=== PATIENT | male | born 1965 | race Caucasian/White ===

== ENCOUNTER 2023-05-03 03:57 | Inpatient (IN) | payer OTHER, SELFPAY ==
[2023-05-02 22:24] VITALS: BP 88/60
[2023-05-02 22:32] VITALS: BMI 30.4
[2023-05-02 22:41] VITALS: BP 118/83
[2023-05-02 22:59] LABS: % Basophils 0.2 % (0-2); % Immature Granulocytes 0.7 % (0-0.5); % Lymphocytes 4.4 % (20.5-51.1); % Monocytes 4.9 % (1.7-9.3); % Neutrophils 89.8 % (42.2-75.2); Absolute Immature Granulocytes 0.1 10^3/uL (0-0.05); Absolute Lymphocytes 0.6 10^3/uL (1.2-3.4); Absolute Monocytes 0.7 10^3/uL (0.1-0.6); Absolute Neutrophils 12.3 10^3/uL (1.4-6.5); Hematocrit 51.7 % (39.0-52.0); Hemoglobin 18.5 g/dL (13.0-18.0); Mean Corp Hgb Conc. 35.8 g/dL (33.0-37.0); Mean Corpuscular Hgb 31.6 pg (27.0-31.0); Mean Corpuscular Volume 88.4 fL (80.0-94.0); Mean Platelet Volume 10.2 fL (7.4-10.4); Nucleated Red Blood Cells % 0 % (-); Platelet Count 167 10^3/uL (130-400); Red Blood Cell Count 5.85 10^6/uL (4.70-6.10); Red Cell Dist. Width 13.6 % (11.5-14.5); White Blood Cell Count 13.8 10^3/uL (4.8-10.8)
[2023-05-02 23:19] VITALS: BP 75/59
[2023-05-02 23:21] VITALS: BP 75/60
[2023-05-02 23:28] LABS: NT-proBNP 7360 pg/ml; Troponin I 0.058 ng/ml
[2023-05-02 23:45] LABS: TSH Reflex To Free T4 2.72 uIU/ml (0.47-4.68)
[2023-05-02 23:50] LABS: ALT (SGPT) 23 U/L (0-50); AST (SGOT) 43 U/L (17-59); Albumin 3.3 g/dl (3.5-5.0); Alkaline Phosphatase 74 U/L (38-126); Blood Urea Nitrogen 49 mg/dl (9-20); Calcium 7.6 mg/dl (8.4-10.2); Carbon Dioxide 23 mmol/L (22-30); Chloride 93 mmol/L (98-107); Estimated Creatinine Clearance 42 ml/min; Glucose 171 mg/dl (70-99); Potassium 4.3 mmol/L (3.5-5.1); Sodium 124 mmol/L (135-145); Total Bilirubin 0.9 mg/dl (0.2-1.3); Total Protein 5.8 g/dl (6.3-8.2); eGFR 37.97
[2023-05-03] VITALS (45 sets, daily range): BP systolic 68–117; BP diastolic 47–77; BMI 30.5
[2023-05-03 00:39] LABS: Osmolality Serum 282 mOsm/kg (275-300)
--- NOTE | 2023-05-03 01:49 | ED.GENMED ---
History of Present Illness
General
Chief Complaint: Heart Rate Problem
Source: patient and records
Exam Limitations: none
Time Seen by Provider: 05/02/23 22:41
Nursing documentation reviewed up to this point in time: agreed with
Travel History
Have you had any contact with someone who has COVID-19?: No
Do you have any symptoms of coronavirus? Fever > 100 degrees, chills, cough, shortness of breath, sore throat, loss of taste or smell, muscle aches, or headache?: Yes
Symptoms:: sob
History of Present Illness
History of Present Illness:
Patient is a 58-year-old male who presents to the emergency department complaining of shortness of breath as well as tachycardia and feeling lightheaded and weak. Patient does not feel like he is going to pass out. Patient denies fever or chills.
Patient does admit to some nasal congestion and cough secondary to his son's recent upper respiratory illness. Patient's son is autistic and he cares for him at home. Patient saw his biology specialist 2 days ago and was told everything was fine. He
had an EKG at that time. Patient believes he was in atrial fibrillation in the past. Patient denies any GI or symptoms. Patient does admit to some swelling of his lower extremities at this time.
Past History
Past History
ED Past Medical History: Arrthythmia (Atrial fibrillation), CAD and SD
Social History
Tobacco: Smoker
Personal:
Review of Systems
Review of Systems
All Other Systems: ROS reviewed and negative except as documented in HPI and ROS
Constitutional: Reports fatigue; Denies fever or chills
EENT: Reports runny nose
Respiratory: Reports cough; Denies trouble breathing
Cardiac: Reports palpitations; Denies chest pain or diaphoresis
ABD/GI: Reports no symptoms
: Reports no symptoms
Musculoskeletal: Reports edema
Skin: Reports no symptoms
Neurological: Reports no symptoms
Hematologic/Lymphatic: Reports no symptoms
Phy Exam
Physical Exam
Physical Exam:
Physical Exam
General: mild distress, alert and appropriate, well nourished, well hydrated
HENT: Normocephalic, supple with no lymphadenopathy, no thyromegaly
Eyes: Clear sclera, conjuctiva without injection
Heart: Regular rhythm and tachycardic rate. No S3, S4. No murmur. No NVD
Lungs: No respiratory distress, no stridor, lung sounds are coarse but clear and equal bilaterally, chest wall symmetrical and nontender
Abdomen: Soft, nontender, no organomegaly, no CVA tenderness, BS good
Neuro: Alert and oriented x 3, CN II - XII intact, no motor focality, no cerebellar dysfunction
Skin: no rash. Pale
Psychiatric: well kept. interactive and cooperative
Extremities: No cyanosis, tenderness. +1 pitting pretibial edema bilaterally
Scores
[id number] Score for Afib Stroke Risk
Age in Years (65=0, 65-74=1, >/=75=2): <65
Sex (Female=+1): Male
Congestive Heart Failure History (Yes=+1): No
Hypertension History (Yes=+1): No
Stroke/TIA/Thromboembolism History (Yes=+2): No
Vascular Disease History (Yes=+1): Yes
Diabetes Mellitus (Yes=+1): No
Score: 1
Anticoagulation Recommendations: Consider anticoagulation (as validated in nonvalvular fib)
Course
Orders/Labs/Results
Orders:
Orders
05/02/23 22:33
Electrocardiogram (*1) Urgent
Reason for Study: Other
Other Reason for Exam: Respiratory Distress
Cardiac Monitoring- Treatment ONCE
EKG- Treatment ONCE
TSH Reflex To Free T4 Urgent
Comment: ADD ON
CR Chest - 2 Views Urgent
Comment:
Reason For Exam: respiratory distress
O2 Therapy [RESP] Urgent
Titrate/Wean O2 to maintain O2 sat greater than (%): 93
Special Instructions: TO MAINTAIN CONTINUOUS O2 SATS >/= 93%
Pulse Ox/cont/shift [RESP] Urgent
Quantity: 1
Special Instructions: continuous pulse ox
05/02/23 22:34
Add On- LAB Urgent
Comments:: TSh Reflex T4
Tests Added?: Y
05/02/23 22:41
Diltiazem HCl [Cardizem] 20 mg IV NOW STA
05/02/23 22:42
Complete Blood Count/With Diff Urgent
NT-proBNP Urgent
Troponin I Urgent
05/02/23 23:18
Comprehensive Metabolic Panel Urgent
Serum Osmolality Urgent
Comment: ADD ON
05/02/23 23:56
Add On- LAB Urgent
Tests Added?: serum osmality
Urine Sodium Urgent
05/02/23 23:57
Osmolality, Random Urine Urgent
05/03/23 02:02
Propofol [Diprivan] 20 ml .ROUTE .STK-MED
05/03/23 02:46
EKG [Electrocardiogram (*1)] Urgent
Reason for Study: Atrial Fibrillation
Other Reason for Exam: post cardioversion
05/03/23 02:47
EKG- Treatment ONCE
05/03/23 02:54
Furosemide [Lasix] 60 mg IV NOW STA
05/03/23 02:58
Apixaban [Eliquis] 5 mg PO NOW STA
05/03/23 03:00
3% Sodium Chloride 250 ml [Sodium Chloride 3%] 250 ml IV ONCE
NORepinephrine INF (STD CONC) CONTINUOUS NORepinephrine 4 MG/250 ML [Levophed] 4 mg in 250 ml IV PER PROTOCOL
Initial dose in mcg/min, then titrate:: 4
Titrate to keep:: SBP > 90 mmHg
Titrate by mcg/min:: 1-2 mcg/min
Frequency of titrations (minutes):: 5
Maximum dose in ICU in mcg/min:: 30
Maximum dose in IMU in mcg/min:: 8
Maximum dose in IVU in mcg/min:: 4
Begin to taper infusion when:: Remained at goal for 4hrs
Taper by mcg/min:: 1-2 mcg/min
Frequency of taper (minutes) if patient maintains goal:: 30
Taper to off?: Yes
If infusion off & no longer maintaining goal:: Contact Provider
Abnormal Lab Results
05/02/23 05/02/23
22:42 23:18
WBC 13.8 H 10^3/uL
(4.8-10.8)
Hgb 18.5 H g/dL
(13.0-18.0)
MCH 31.6 H pg
(27.0-31.0)
Abs Immat Gran (auto) 0.1 H 10^3/uL
(0-0.05)
Absolute Neuts (auto) 12.3 H 10^3/uL
(1.4-6.5)
Absolute Lymphs (auto) 0.6 L 10^3/uL
(1.2-3.4)
Absolute Monos (auto) 0.7 H 10^3/uL
(0.1-0.6)
Immature Gran % 0.7 H %
(0-0.5)
Neutrophils % 89.8 H %
(42.2-75.2)
Lymphocytes % 4.4 L %
(20.5-51.1)
Sodium 124 L mmol/L
(135-145)
Chloride 93 L mmol/L
(98-107)
BUN 49 H mg/dl
(9-20)
Creatinine 2.0 H mg/dL
(0.7-1.3)
Glucose 171 H mg/dl
(70-99)
Calcium 7.6 L mg/dl
(8.4-10.2)
Troponin I 0.058 H* ng/ml
Total Protein 5.8 L g/dl
(6.3-8.2)
Albumin 3.3 L g/dl
(3.5-5.0)
05/02/23 22:42
05/02/23 23:18
Vital Signs
Initial and Last Documented VS:
Initial Vital Signs
Temp Pulse Resp BP Pulse Ox
97.6 F 74 20 88/60 88
05/02/23 22:24 05/02/23 22:24 05/02/23 22:24 05/02/23 22:24 05/02/23 22:24
Last Documented Vital Signs
Temp Pulse Resp BP Pulse Ox
98.0 F 87 31 77/59 92
05/03/23 02:36 05/03/23 02:50 05/03/23 02:50 05/03/23 02:50 05/03/23 02:50
Procedures
Cardioversion
Indication:: Afib
Performed by:: [email or web address]
Synchronized?: Yes
Energy Used: Other (100)
Number of attempts: 1
Successful?: Yes
Complications: Transient low pulse ox to 85% came back with bagging
ASA Risk Score: Class III
Any reaction or bad outcome to prior sedation/anesthesia?: No history of a reaction
Sedation level to be attained: deep
Chart and allergies reviewed: Yes
Patient reassessed prior to sedation: Yes
Time out completed at (validating right patient & procedure): 02:39
History of difficult intubation: No
Airway free of obstruction: Yes
Patient has a gag reflex: Yes
Patient is able to open mouth: Yes
Patient has no dentures: Yes
Patient has no loose teeth: Yes
Medication administered by Provider during Moderate Sedation: IV Propofol (mg)
Total dose administered: 70
Time drug administered: 00:29
Start Time: 02:39
Stop Time: 02:50
*Radiology
Radiology exam reviewed: radiology read reviewed (unchanged)
*Pulse Oximetry
Patient hypoxic: yes
*EKG
Interpreted by ED Provider?: Yes
EKG Intrepretation Date: 05/03/23
EKG Intrepretation Time: 03:01
Interpretation: abnormal
Comparison EKG: changes noted
Heart Rate: 147
Rate: tachycardiac
Rhythm: a-fib
[place]: normal axis
Interval: normal QT interval
QRS Pattern: poor R-wave progression
Ischemia: non-specific ST changes
*Reimbursement Director Interpretation
Rate: tachycardiac
Interpretation: abnormal
Heart Rate: 150
Rhythm: a-fib
*Critical Care Note
Total Time (30-74mins, 75-104mins- exclusive of procedures): 45 minutes
Update Note
Update Note:
Patient's blood pressure did not come up with cardioversion. Patient was 48 hours from being in sinus rhythm according to the patient. Patient was cardioverted hoping that his pressure would come up. Patient's repeat EKG shows normal sinus rhythm
with a rate of 86. Patient has a left axis deviation with poor R wave progression and an old inferior wall SD. This is similar to previous EKGs. The patient's blood pressure will be augmented with Levophed and try to increase diuresis with Lasix
given the patient's elevated BNP. Believe the patient's troponin is from the tachycardia and not from ischemic heart disease although the patient in the past has had a 60% occlusion of the circumflex and 30% of the LAD after having a total
occlusion of the RCA. Patient does continue to smoke. Patient's sodium is also low which it was on his previous visit. Patient will be started on hypertonic saline. In addition the patient's renal function has dramatically decreased since his
previous visit 2 weeks ago.
ED Attending Note
-
Portions of this chart may have been created with voice recognition software.� Occasional wrong word or��sound alike� substitutions may have occurred due to the inherent limitations of voice recognition software.
Discharge Plan
Departure
Patient Disposition: Admit
Date of Disposition: 05/03/23
Time of Disposition: 03:06
Admit to: IVU
Admit to doctor: Hospitalist
Presentation/result/management discussed w/ accepting MD/DO: Hospitalist
Patient with high blood pressure during this ER visit?: No
Condition: Serious
Covid-19: Not Applicable
Discharge Problem:
Atrial fibrillation with RVR, Hypotension, Hyponatremia, Acute renal insufficiency, Elevated brain natriuretic peptide (BNP) level
Prescriptions:
No Action
aspirin 81 MG tablet,chewable
81 mg PO DAILY Qty: 30 6RF
lisinopril 2.5 MG tablet
2.5 mg PO DAILY Qty: 30 6RF
carvedilol 6.25 MG tablet
6.25 mg PO BID Qty: 60 6RF
atorvastatin [Lipitor] 40 mg Tablet
40 mg PO DAILY
prednisone 10 mg Tablets,Dose Pack
40 mg PO DIRECTED
Rx Instructions:
start 05/01/23 take 40mg daily for 3 days then take 30mg daily for 3 days then 20mg daily for 3 days then 10md daily u ntil finished
naproxen sodium [Aleve] 220 mg Tablet
220 mg PO [id number] PRN (Reason: mild pain)
levofloxacin [Levaquin] 750 mg Tablet
750 mg PO DAILY
Patient Comments:
PATIENT COUNTERSINKER ON #7 ON 05/01/23
albuterol sulfate [ProAir HFA] 90 mcg/actuation Hfa Aerosol Inhaler
2 puff INHALATION R Q6HPRN PRN (Reason: sob)
metformin 500 mg Tablet Extended Release 24 Hr
500 mg PO BID
cholecalciferol (vitamin D3) 1,250 mcg (50,000 unit) capsule
1,250 mcg PO LINDER
budesonide-formoterol [Symbicort] 160-4.5 mcg/actuation Hfa Aerosol Inhaler
2 inh INHALATION R BID
Referrals:
Juvencio Betancourt MD [Family Provider] -
Interventions
Interventions:
*Risk Screen - Suicide Last Done: 05/02/23 22:28
*General Assessment Last Done: 05/02/23 22:28
*Neglect/Abuse Screening Last Done: 05/02/23 22:43
ED- Fall Risk Assessment Last Done: 05/02/23 22:43
*ED COVID-19 Vaccine History Last Done: 05/02/23 22:43
ED- Cardiac Assessment Last Done: 05/02/23 22:43
ED- Pulmonary Assessment Last Done: 05/02/23 22:43
[2023-05-03] MEDS: SODIUM CHLORIDE 3% 250 IV (02:56)
[2023-05-03] MEDS: ELIQUIS 5 MG PO ×3 (03:06→20:49)
[2023-05-03] MEDS: LEVOPHED 250 IV (03:09)
[2023-05-03] MEDS: LASIX 60 MG IV (03:16)
--- NOTE | 2023-05-03 03:25 | HPS.HSE ---
Addendum entered and electronically signed by Leonard Eugene MD 05/03/23 04:23:
Chronic Bi cytosis -�Leukocytosis�and�Erythrocytosis
DDX:�Hemoconcentration�vs. Reactive vs.��Primary�Polycythemic/�myeloproliferative?
- Heme consult.�
Original Note:
Family Physician
-
Family Physician: Juvencio Betancourt
Chief Complaint
-
shortness of breath
History of Present Illness
58M HX CAD, [place], Prx AF, T2 daibetic, HTN, HLD seen at ER for evalaution of shortness of breath as well as tachycardia and feeling lightheaded and weak.
Patient does admit to some nasal congestion and cough secondary to his son's recent upper respiratory illness. Patient's son is autistic and he cares for him at home. Patient saw his tank maker wood 2 days ago and was told everything was fine.
ROS
No fever or chills.
Swelling of both legs
Medical History
Past Medical History
Past Medical History: Reports Arrhythmia (Prx AF ) and CAD ([place] )
Past Surgical History: Reports Cardiac (s/p PCI mid RCA and POBA distal RCA) and Other
Social History
Tobacco: Smoker
Alcohol: None
Family History
Family History: Not pertinent
Allergies / Home Medications
Allergies reflects when Allergies were last updated in [facility].
Home Medications with original date entered in [facility]
Allergy/Medication List:
Allergies
Allergy/AdvReac Type Severity Reaction Status Date / Time
latex Allergy Rash Verified 04/19/23 17:44
Penicillins Allergy Unknown Verified 04/19/23 17:44
Home Medications
aspirin 81 mg chewable tablet 81 mg PO DAILY #30 tabs 11/14/18
lisinopril 2.5 mg tablet 2.5 mg PO DAILY #30 tabs 11/14/18
carvedilol 6.25 mg tablet 6.25 mg PO BID #60 tabs 11/15/18
albuterol sulfate 90 mcg/actuation aerosol inhaler (ProAir HFA) 2 puff inhalation R Q6HPRN PRN sob 05/02/23
atorvastatin 40 mg tablet (Lipitor) 40 mg PO DAILY 05/02/23
budesonide-formoterol HFA 160 mcg-4.5 mcg/actuation aerosol inhaler (Symbicort) 2 inh inhalation R BID 05/02/23
cholecalciferol (vitamin D3) 1,250 mcg (50,000 unit) capsule 1,250 mcg PO LINDER 05/02/23
levofloxacin 750 mg tablet 750 mg PO DAILY 05/02/23
metformin 500 mg tablet,extended release 24 hr 500 mg PO BID 05/02/23
naproxen sodium 220 mg tablet (Aleve) 220 mg PO [id number] PRN mild pain 05/02/23
prednisone 10 mg tablets in a dose pack 40 mg PO DIRECTED 05/02/23
Review of Systems
-
Constitutional: Reports No Symptoms
EENT: Reports No Symptoms
Respiratory: Reports Trouble Breathing
Cardiac: Reports See HPI
Abdomen/GI: Reports No Symptoms
: Reports No Symptoms
Musculoskeletal: Reports No Symptoms
Skin: Reports No Symptoms
Neurological: Reports No Symptoms
Endocrine: Reports No Symptoms
Hematologic/Lymphatic: Reports No Symptoms
Psych: Reports No Symptoms
Physical Exam
Vital Signs
Vital Signs
Temp Pulse Resp BP Pulse Ox
98.0 F 82 31 92/63 92
05/03/23 02:36 05/03/23 03:16 05/03/23 02:50 05/03/23 03:16 05/03/23 02:50
Physical Exam
General: Other (see below )
Laboratory Results
-
05/02/23 22:42
05/02/23 23:18
Laboratory Results
Total Bilirubin 0.9 mg/dl (0.2-1.3) 05/02/23 23:18
AST 43 U/L (17-59) 05/02/23 23:18
ALT 23 U/L (0-50) 05/02/23 23:18
Alkaline Phosphatase 74 U/L (38-126) 05/02/23 23:18
Troponin I 0.058 ng/ml H* 05/02/23 22:42
Data Reviewed
-
Medical Tests (Nuc Med, Echo, EKG etc): Report Reviewed by me
Lab Data: Labs Reviewed by me
Old Records: Reviewed
Impression/Plan
-
Reviewed VS: afebrile HR 150--> 80s BP 75s/60s POx low 90s
Wt 89kg( 04/19/23 0 ---> 86.6 ( 05/03/23)
PE
Gen: mild distress
HEENT: anicteric
Neck: supple
Lungs: No respiratory distress. CTA.
Cor: RRR tachyarrthmic
Abdomen: Soft, nontender
WELD TECHNICIAN: AAO3 NFND
MS: 1 plus pitting edema both legs
Psych: interactive and cooperative
[id number] Score for Afib Stroke Risk: 1 for vascular dz
Data
WCC 13.8 - baseline 16s - low 20s
Hgb 18.5 - Baseline mid 18.5 to low 19s
Na 124 - prior Na low 120s to low 130s
Cl 93
BUN 49
Cr 2.0 - baseline 0.8 - 1.1
eGFR 37- baseline > 60
BG 170
TPNI 0.058
pro BNP 7360 - on 04/19/23 [id number]
TSH 2.72
Pending CXR
EKG report
NORMAL SINUS RHYTHM
POSSIBLE LEFT ATRIAL ENLARGEMENT
INFERIOR INFARCT (CITED ON OR BEFORE 13-NOV-2018)
POSSIBLE ANTEROLATERAL INFARCT (CITED ON OR BEFORE 13-NOV-2018)
ABNORMAL ECG
WHEN COMPARED WITH ECG OF 02-MAY-2023 22:36,
PREVIOUS ECG HAS UNDETERMINED RHYTHM, NEEDS REVIEW
ST NO LONGER ELEVATED IN INFERIOR LEADS
05/10/21 ECHO
LVEF 50-55%
Stage II diastolic dysfunction
Mild pulmonary hypertension with estimated pulmonary artery pressure of 41 mmHg
No prior hospitalist admission
ASSESSMENT & PLAN
S/ p successfully cardioverted @ ER
S/p Fast Prx AF
Hypotensive post CV require NE pressor support
[id number] Score for Afib Stroke Risk: 1 for vascular dz
HX single episode of SVT in setting of prior surgery 3 years ago
- Pressor support with NE gtt @ 4 mcg
- Held Lisinopril and carvedilol due to hypotension
- ER initiated Eliquis - to cont.
- ECHO
- DCA card consult
Elevated Abn TPNI - NMITE vs NSTEMI
HX Inferior STEMI s/p PCI mid RCA and POBA distal RCA
FHX CAD
- Trend TPNI
- cont. ASA and Atorvastatin
- held Carvedilol due to hypotension
B/L [place] edema with sigifican BNP
Suspect acute HF / HFpEF ?
- IV Lasix 60 x 1
- daily Wt and IOs
- await Card eval in AM for further Diuresis
ALEX suspect due to cardiorenal l syndrome
- held Lisinopril
- Trend Cr s/p IV lasix 60 x 1
- daily BMP
- Renal consult
Chronic Hyponatremia suspect hypervolemic
Noted 3 % saline by ER
- stop 3 % saline
- Observe Na in s/p IV lasix
- Await Renal evalaution
Bi cytosis - Leucocytosis and Erythrocytosis DDX: Hemoconcentratiin vs Reactive vs Priamary Polycythemia/ myeloprliferative
- Trend CBC
DMT2
- held Metformin
- add ISS low
Ongoing Tobacco abuse
DVT Px: on Eliquis
Code: Full
IMU
[2023-05-03 04:49] LABS: Osmolality Urine 332 mOsm/kg (300-900)
[2023-05-03 05:03] LABS: Urine Sodium 67 mmol/L (30-90)
--- NOTE | 2023-05-03 06:15 | PTCARENOTE ---
Patient arrived from ER via stretcher to room 2250 without difficulty. Patient A+A+Ox3. No neurological deficits noted. No c/o headache, dizziness or lightheadedness. No c/o SOB. O2 2L. SaO2 92%. Lungs diminished throughout lung [place]. No
adventitious breath sounds noted. Occasional harsh, nonproductive cough. Sinus Rhythm. Heart rate 70-80's. BP 117/72 (86). No c/o chest pain, pressure or discomfort. Arrived with Levophed gtt at 4 mcq/min (15 ml/hr). Titrated to Levophed 2
mcq/min (7.5 ml/hr). Normoactive bowel sounds. No BM. No c/o nausea. No vomiting. Voiding without difficulty - 300 ml yellow urine. Patient moves all extremities without difficulty. Positive, palpable pulses. Bilateral lower extremity edema.
Resting in bed watching television. Assessment as documented.
[2023-05-03 07:22] LABS: Troponin I 0.044 ng/ml
[2023-05-03 08:14] LABS: Glucose - Point of Care 151 mg/dl (70-99)
[2023-05-03] MEDS: SYMBICORT 160/4.5 MCG INHALER 2 PUFF INH ×2 (08:14→18:16)
--- NOTE | 2023-05-03 08:24 | CON.CAR ---
Addendum entered and electronically signed by Tad Vega MD 05/03/23 09:56:
Patient seen and examined
Agree with PA-C note and assessment
Agree with PA-C plan
Discussion with patient at bedside regarding plan below as well as his Sister Brissa who is on the phone who is a cardiac nurse at [employer].
There is a family history of atrial fibrillation and a brother and the sister has supraventricular tachycardia.
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 He tells me that he has been having on and off atrial fibrillation symptoms perhaps for 4 to 7 days. Of note on a prior ER visit he had atrial fibrillation approximately 2 months ago as well.
He is maintaining sinus rhythm this morning with electrolyte abnormalities and improving hypertension as noted. He is having
urine output.
Exam:
HEENT normocephalic atraumatic
Oxygen in place
JVP flat
Telemetry sinus rhythm
Cor regular without murmur
Lungs are diminished but clear
Abdomen soft nontender positive bowel sounds
Alert and x 3
Nonfocal neurologically
PCP: Jarret Naylor
Pen Rider: Dr. Jasiel Novoa
Impression:
Presented 05/03/2022 with tachycardia, lightheaded and weakness
Atrial fibrillation with accelerated ventricular response
s/p CV 05/03/2023Hypotension
Abnormal troponin
Hyponatremia
ALEX
CAD
Status post mid RCA JESS and PTCA of ostial RPL October 2018Paroxysmal atrial fibrillation
Hypertension
Hyperlipidemia
Type 2 diabetes
Tobacco abuse
Cardiac catheterization November 13, 2018:�LAD with 30% mid stenosis, second OM with 60% mid stenosis, a small artery and a 100% thrombotic total occlusion of the RCA. There was a large area of inferior hypokinesis with mild left ventricular
dysfunction, EF 42%.��The patient underwent successful 4.0/28 mm drug-eluting stent to the mid RCA and PTCA of the ostial RPL branch.
Echo 05/10/2021: EF 50 to 55%, stage II DD, mild pulmonary hypertension with PAP 41 mmHg, no significant valvular disease
Plan:
Patient is a 58-year-old male with past medical history significant for coronary artery disease with prior RCA stent, hypertension, hyperlipidemia, type 2 diabetes, ongoing tobacco abuse and history of paroxysmal atrial fibrillation who presented to
emergency department 05/03/2023 with tachycardia, increasing shortness of breath, weakness and dizziness.� He admits that he has been dealing with upper respiratory symptoms including cough.� 3 days prior he was seen at outpatient cardiology and was
in sinus rhythm.� Patient was noted to be in atrial fibrillation with rapid ventricular response and was hypotensive.� Patient was provided 3% saline fluid bolus without improvement of blood pressure.� He underwent a cardioversion with hinduism
of sinus rhythm.� His blood pressure unfortunately made hypotensive and he was initiated on Levophed 4 mcg/min which was weaned to 2 mcg/min at time of this evaluation.� He was noted to have a creatinine of 2.0, sodium 124, calcium 7.6.� Troponin
0.058.� proBNP 7360.� Patient continues to have intermittent dizziness and shortness of breath with activity.� He denies chest pain, edema, orthopnea or PND.� He does feel slightly bloated.
Recommendations:
-Paroxysmal atrial fibrillation with rapid ventricular response.� Patient underwent cardioversion in emergency department with successful conversion to sinus rhythm.� However upon review of telemetry patient appears to continue to have paroxysmal
atrial fibrillation.
-Start Eliquis 5 mg twice a day
-Rate control with beta-jesus when blood pressure allows
-Would consider evaluation for outpatient ablation
-TSH 2.72
-Hypotensive was on Levophed 4 mcg/min which was weaned to 2 mcg/min.� BP stable at 109/72.� Continue to wean off Levophed
-Check echo if still here on Friday. Outpatient ischemic evaluation as well
-ALEX with creatinine 2.0 on presentation, received 3% saline fluid bolus.� Would likely benefit from additional volume.� Of note creatinine was 1.1 on 04/19/2023.
-Would hold lisinopril and metformin given ALEX.
-Hyponatremia with sodium of 124.� Upon review of previous blood work patient does appear to have chronically low sodium levels.� Consider nephrology evaluation given creatinine and hyponatremia. Defer to internal medicine regarding workup and
treatment of the hyponatremia
-Abnormal troponin, suspect nonischemic myocardial injury secondary to atrial fibrillation with rapid ventricular response.� Peaked 0.058
-Would consider eventual outpatient stress test
-Elevated proBNP of 7360.� Patient weight is less than weight at office visit earlier this week.� He does not appear to be acutely volume overloaded.
-Currently on 2 L of oxygen via nasal cannula, wean as tolerated
Patient's sister who is a cardiac nurse was updated over the phone by Dr. Vega
Original Note:
Consultation
Consultation Request
Date/Time Consultation Requested: 05/03/2022
Date/Time Consultation Performed: 05/03/2022
Requesting Provider: Dr. Eugene
Performing Provider: Yoselin Rogers PA-C for Dr. Vega
Reason for Consultation: Hypotension, atrial fibrillation, abnormal troponin
Medical History
-
History of Present Illness:
Patient is a 58-year-old male with past medical history significant for coronary artery disease with prior RCA stent, hypertension, hyperlipidemia, type 2 diabetes, ongoing tobacco abuse and history of paroxysmal atrial fibrillation who presented to
emergency department 05/03/2023 with tachycardia, increasing shortness of breath, weakness and dizziness. He admits that he has been dealing with upper respiratory symptoms including cough. 3 days prior he was seen at outpatient cardiology and was
in sinus rhythm. Patient was noted to be in atrial fibrillation with rapid ventricular response and was hypotensive. Patient was provided 3% saline fluid bolus without improvement of blood pressure. He underwent a cardioversion with hinduism
of sinus rhythm. His blood pressure unfortunately made hypotensive and he was initiated on Levophed 4 mcg/min which was weaned to 2 mcg/min at time of this evaluation. He was noted to have a creatinine of 2.0, sodium 124, calcium 7.6. Troponin
0.058. proBNP 7360. Patient continues to have intermittent dizziness and shortness of breath with activity. He denies chest pain, edema, orthopnea or PND. He does feel slightly bloated.
PMH:
CAD
Status post mid RCA JESS and PTCA of ostial RPL October 2018
Paroxysmal atrial fibrillation
Hypertension
Hyperlipidemia
Type 2 diabetes
Tobacco abuse
Past Medical History
Past Medical History: Other (See HPI)
Past Surgical History: Bowel Resection, Cardiac (Mid RCA JESS, PTCA of ostial RPL 10/2018), Cholecystectomy and Orthopedic (Right knee surgery)
Social History
Tobacco: Smoker
Alcohol: None
Drug: None
Personal:
Living: With Family (Cares for her autistic son)
Employment: Employed
Family History
Family History: Other (Father coronary artery disease with multiple heart attacks, lung cancer, hypertension. Mother lung cancer)
Allergies / Home Medications
Allergy/AdvReac Type Severity Reaction Status Date / Time
latex Allergy Rash Verified 04/19/23 17:44
Penicillins Allergy Unknown Verified 04/19/23 17:44
Medication Instructions Recorded Confirmed Type
aspirin 81 mg chewable tablet 81 mg PO DAILY #30 tabs 11/14/18 05/02/23 Rx
lisinopril 2.5 mg tablet 2.5 mg PO DAILY #30 tabs 11/14/18 05/02/23 Rx
carvedilol 6.25 mg tablet 6.25 mg PO BID #60 tabs 11/15/18 05/02/23 Rx
albuterol sulfate 90 mcg/actuation 2 puff inhalation R Q6HPRN PRN sob 05/02/23 05/02/23 History
aerosol inhaler (ProAir HFA)
atorvastatin 40 mg tablet (Lipitor) 40 mg PO DAILY 05/02/23 05/02/23 History
budesonide-formoterol HFA 160 2 inh inhalation R BID 05/02/23 05/02/23 History
mcg-4.5 mcg/actuation aerosol
inhaler (Symbicort)
cholecalciferol (vitamin D3) 1,250 1,250 mcg PO LINDER 05/02/23 05/02/23 History
mcg (50,000 unit) capsule
levofloxacin 750 mg tablet 750 mg PO DAILY 05/02/23 05/02/23 History
metformin 500 mg tablet,extended 500 mg PO BID 05/02/23 05/02/23 History
release 24 hr
naproxen sodium 220 mg tablet 220 mg PO [id number] PRN mild pain 05/02/23 05/02/23 History
(Aleve)
prednisone 10 mg tablets in a dose 40 mg PO DIRECTED 05/02/23 05/02/23 History
pack
Review of Systems
-
History Source: Patient
All other systems: Negative unless noted
Physical Exam
Vital Signs
Temp Pulse Resp BP Pulse Ox
98.2 F 89 16 95/62 93
05/03/23 07:52 05/03/23 07:52 05/03/23 07:52 05/03/23 06:09 05/03/23 07:52
GEN: No distress, awake, Ox3, sitting up in bed wearing oxygen
HEENT: supple, anicteric, mmm
LUNGS: Diminished breath sounds bilaterally, wearing 2 L of oxygen via nasal cannula
CV: Reg with ectopy noted, S1/S2, no murmur, rub or gallop
ABD: soft, BS+, NT/ND
EXT: No edema, clubbing or cyanosis
NEURO: Gross non-focal
SKIN: No rash warm, dry, pink
Lab Results
05/02/23 22:42
05/02/23 23:18
Troponin I 0.044 ng/ml H* 05/03/23 06:42
[id number] Pept 7360 pg/ml 05/02/23 22:42
Impression / Plan
-
PCP: Jarret Naylor
Pen Rider: Dr. Jasiel Novoa
Impression:
Presented 05/03/2022 with tachycardia, lightheaded and weakness
Atrial fibrillation with accelerated ventricular response
s/p CV 05/03/2023
Hypotension
Abnormal troponin
Hyponatremia
ALEX
CAD
Status post mid RCA JESS and PTCA of ostial RPL October 2018
Paroxysmal atrial fibrillation
Hypertension
Hyperlipidemia
Type 2 diabetes
Tobacco abuse
Cardiac catheterization November 13, 2018: LAD with 30% mid stenosis, second OM with 60% mid stenosis, a small artery and a 100% thrombotic total occlusion of the RCA. There was a large area of inferior hypokinesis with mild left ventricular
dysfunction, EF 42%.��The patient underwent successful 4.0/28 mm drug-eluting stent to the mid RCA and PTCA of the ostial RPL branch.
Echo 05/10/2021: EF 50 to 55%, stage II DD, mild pulmonary hypertension with PAP 41 mmHg, no significant valvular disease
Plan:
Patient is a 58-year-old male with past medical history significant for coronary artery disease with prior RCA stent, hypertension, hyperlipidemia, type 2 diabetes, ongoing tobacco abuse and history of paroxysmal atrial fibrillation who presented to
emergency department 05/03/2023 with tachycardia, increasing shortness of breath, weakness and dizziness. He admits that he has been dealing with upper respiratory symptoms including cough. 3 days prior he was seen at outpatient cardiology and was
in sinus rhythm. Patient was noted to be in atrial fibrillation with rapid ventricular response and was hypotensive. Patient was provided 3% saline fluid bolus without improvement of blood pressure. He underwent a cardioversion with hinduism
of sinus rhythm. His blood pressure unfortunately made hypotensive and he was initiated on Levophed 4 mcg/min which was weaned to 2 mcg/min at time of this evaluation. He was noted to have a creatinine of 2.0, sodium 124, calcium 7.6. Troponin
0.058. proBNP 7360. Patient continues to have intermittent dizziness and shortness of breath with activity. He denies chest pain, edema, orthopnea or PND. He does feel slightly bloated.
-Presented 05/03/2022 with tachycardia, lightheaded and weakness. He was found to be in atrial fibrillation with rapid ventricular response and hypotensive.
-Paroxysmal atrial fibrillation with rapid ventricular response. Patient underwent cardioversion in emergency department with successful conversion to sinus rhythm. However upon review of telemetry patient appears to continue to have paroxysmal
atrial fibrillation.
-Start Eliquis 5 mg twice a day
-Rate control with beta-jesus when blood pressure allows
-Would consider evaluation for outpatient ablation
-TSH 2.72
-Hypotensive was on Levophed 4 mcg/min which was weaned to 2 mcg/min. BP stable at 109/72. Continue to wean off Levophed
-Check echo if still here on Friday
-ALEX with creatinine 2.0 on presentation, received 3% saline fluid bolus. Would likely benefit from additional volume. Of note creatinine was 1.1 on 04/19/2023.
-Would hold lisinopril and metformin given ALEX.
-Hyponatremia with sodium of 124. Upon review of previous blood work patient does appear to have chronically low sodium levels. Consider nephrology evaluation given creatinine and hyponatremia
-Abnormal troponin, suspect nonischemic myocardial injury secondary to atrial fibrillation with rapid ventricular response. Peaked 0.058
-Would consider eventual outpatient stress test
-Elevated proBNP of 7360. Patient weight is less than weight at office visit earlier this week. He does not appear to be acutely volume overloaded.
-Currently on 2 L of oxygen via nasal cannula, wean as tolerated
Patient's sister who is a cardiac nurse was updated over the phone by Dr. Vega
Data Reviewed
-
EKG: Report Reviewed by me, Discussed with Physician, Discussed with Nurse, Discussed with Patient and Discussed with Family
Radiology: Report Reviewed by me, Discussed with Physician, Discussed with Nurse, Discussed with Patient and Discussed with Family
Labs: Labs Reviewed by me, Discussed with Physician, Discussed with Nurse, Discussed with Patient and Discussed with Family
Old Records: Reviewed
--- NOTE | 2023-05-03 09:09 | W.PN.UPDATE ---
Update Note
Progress Note Update
Admitted early also this morning for rapid A-fib for which she had cardioversion. Post cardioversion noted to be hypotensive requiring vasopressors. Patient currently without any symptoms of shortness of breath, chest pain or palpitations. He is
denying any dizziness his systolic in 80s. He is standing up and walking in the room without symptoms.
Chest auscultation reveals no wheezing but he does have crackles in the basilar area more so on the left.
Monitor shows sinus rhythm
Afebrile.
Await cardiology input regarding A-fib.
Renal consulted for hyponatremia and ALEX.
Leukocytosis along with erythrocytosis noted seems to be chronic. Hematology input pending.
With regards to preadmission respiratory symptoms the currently denies any nasal congestion, cough. He had 1 dose of Levaquin and steroids as prescribed by primary. He is currently not bronchospastic. Unclear if his leukocytosis is reactive,
steroid related or infective in nature. Chest x-ray without consolidation. Agree on holding antibiotics and steroids. Check a procalcitonin. Check COVID, influenza A and B, and RSV.
[2023-05-03] MEDS: LOW STRENGTH ASPIRIN 81 MG PO (09:58)
[2023-05-03] MEDS: LIPITOR 40 MG PO (09:58)
[2023-05-03 10:18] LABS: COVID-19 Antigen Negative (Negative)
[2023-05-03 10:34] LABS: Procalcitonin 0.27 ng/ml (0.0-0.25)
[2023-05-03] MEDS: TAMIFLU 30 MG PO ×2 (11:43→20:49)
--- NOTE | 2023-05-03 12:21 | CON.MD ---
Consultation - Medical
-
Assessment
-ALEX
-hyponatremia
-hypotension
-PAFib
-polycythemia
-leucocytosis
-InfA
-DM2
Plan
-no NSAIDs
-holding BP meds
-repeat BMP
-could consider more 3%
-wean levophed as allowed for MAP>65
-OAT per cardiology
-Suspect ALEX is prerenal hemodynamic
-will need OP eval for polycythemia
-check PVR
-[id number]
--- NOTE | 2023-05-03 13:13 | CON.ONC ---
Impression
Impression
Erythrocytosis and leukocytosis
Previous heavy tobacco use
Atrial fibrillation status post cardioversion 2/3
Abnormal troponin
ALEX
Hyponatremia
Diabetes mellitus
Hyperlipidemia
Plan
Plan
Will assess for myeloproliferative disorder with typical NGS/FISH testing
Baseline erythropoietin level
Possibly related to tobacco use
Previous evaluation reportedly INA negative
Monitor CBC with differential
Will Follow
Patient History
History of Present Illness
58M HX CAD, NM,� Prx AF, T2 daibetic, HTN, HLD seen at ER for evalaution of shortness of breath, tachycardia. He reports symptoms of an upper respiratory tract infection including nasal congestion and cough. � Patient's son is autistic and he cares
for him at home. Hematology has been asked to evaluate him for persistent elevations Of hemoglobin/hematocrit and WBC. Patient is a 2 pack-a-day smoker until recently.�Reports erratic sleep habits but states that he has been tested in the last 10
years for INA and was negative.
Past-Medical/Surgical History
Past Medical History
Past Medical History: Reports Arrhythmia (Prx AF ) and CAD (NM )
Past Surgical History: Reports Cardiac (s/p PCI mid RCA and POBA distal RCA) and Other
Social History
Tobacco: Smoker
Alcohol: None
Family History
Family History: Not pertinent
Patient Medication
Medication Instructions Recorded Confirmed Last Taken Type
aspirin 81 mg chewable tablet 81 mg PO DAILY #30 tabs 11/14/18 05/02/23 05/02/23 Rx
lisinopril 2.5 mg tablet 2.5 mg PO DAILY #30 tabs 11/14/18 05/02/23 05/02/23 Rx
carvedilol 6.25 mg tablet 6.25 mg PO BID #60 tabs 11/15/18 05/02/23 05/02/23 Rx
albuterol sulfate 90 mcg/actuation 2 puff inhalation R Q6HPRN PRN sob 05/02/23 05/02/23 Unknown History
aerosol inhaler (ProAir HFA)
atorvastatin 40 mg tablet (Lipitor) 40 mg PO DAILY 05/02/23 05/02/23 05/02/23 History
budesonide-formoterol HFA 160 2 inh inhalation R BID 05/02/23 05/02/23 05/02/23 History
mcg-4.5 mcg/actuation aerosol
inhaler (Symbicort)
cholecalciferol (vitamin D3) 1,250 1,250 mcg PO LINDER 05/02/23 05/02/23 04/27/23 History
mcg (50,000 unit) capsule
levofloxacin 750 mg tablet 750 mg PO DAILY 05/02/23 05/02/23 05/02/23 History
metformin 500 mg tablet,extended 500 mg PO BID 05/02/23 05/02/23 04/29/23 History
release 24 hr
naproxen sodium 220 mg tablet 220 mg PO [id number] PRN mild pain 05/02/23 05/02/23 05/01/23 History
(Aleve)
prednisone 10 mg tablets in a dose 40 mg PO DIRECTED 05/02/23 05/02/23 05/02/23 History
pack 40 MG
Active Medications
Generic Name Dose Route Start Last Admin
Trade Name Freq PRN Reason Stop Dose Admin
Acetaminophen 650 mg 05/03/23 06:18
Acetaminophen 325 Mg Tablet PO 05/31/23 06:17
Q4HPRN PRN
mild pain/AYON/temp> 100.4F
Albuterol 2 puff 05/03/23 09:07
Albuterol Hfa [90 Mcg/Dose] Inhaler INH 05/31/23 09:06
R Q6HPRN PRN
sob
Protocol
Albuterol/Ipratropium 3 ml 05/03/23 06:18
Ipratropium 0.5/Albuterol 3 Mg (3 Ml Ampul) INH 05/31/23 06:17
R Q4HPRN PRN
shortness of breath
Protocol
Apixaban 5 mg 05/03/23 08:00 05/03/23 11:42
Apixaban (Eliquis) 5 Mg Tablet PO 05/31/23 07:59 5 mg
BID TAMMIE Administration
Aspirin 81 mg 05/03/23 08:00 05/03/23 09:58
Aspirin 81 Mg Chewable Tablet PO 05/31/23 07:59 81 mg
DAILY TAMMIE Administration
Atorvastatin Calcium 40 mg 05/03/23 08:00 05/03/23 09:58
Atorvastatin (Lipitor) 40 Mg Tablet PO 05/31/23 07:59 40 mg
DAILY TAMMIE Administration
Budesonide/Formoterol Fumarate 2 puff 05/03/23 08:00 05/03/23 08:14
Symbicort Inhaler 160/4.5 INH 05/31/23 07:59 2 puff
R BID TAMMIE Administration
Protocol
Dextrose 12.5 grams 05/03/23 06:18
Dextrose 50% (0.5 Grams/Ml) 50 Ml Syringe IV 05/31/23 06:17
[id number] PRN
hypoglycemia
Protocol
Glucagon 1 mg 05/03/23 06:18
Glucagon 1 Mg Vial IM 05/31/23 06:17
PRN PRN
hypoglycemia
Protocol
Norepinephrine Bitartrate 4 mg in 250 mls @ 0 mls/hr 05/03/23 03:00 05/03/23 03:09
Levophed IV 250 mls
PER PROTOCOL TAMMIE Administration
Protocol
Per Protocol
Insulin Aspart 0 units 05/03/23 07:30 05/03/23 10:03
Insulin Aspart Low Resistance 300 Units/3 Ml Pen.Injctr SC 05/31/23 07:29 Not Given
AC TAMMIE
Protocol
Oseltamivir Phosphate 30 mg 05/03/23 10:45 05/03/23 11:43
Oseltamivir (Tamiflu) 30 Mg Capsule PO 05/08/23 10:44 30 mg
BID TAMMIE Administration
Sodium Chloride 0 flush 05/03/23 07:00
Sodium Chloride 0.9% (Flush) Syringe IV 05/31/23 06:59
PER PROTOCOL TAMMIE
Review of Systems
-
No significant complaints on 12 point review other than those noted in the HPI
Physical Exam
-
GEN: No distress, awake, Ox3, sitting up in bed wearing oxygen
HEENT: supple, anicteric, mmm
LUNGS: Diminished breath sounds bilaterally, wearing 2 L of oxygen via nasal cannula
CV: Reg with ectopy noted, S1/S2, no murmur, rub or gallop
ABD: soft, BS+, NT/ND
EXT: No edema, clubbing or cyanosis
NEURO: Gross non-focal
SKIN: No rash warm, dry, pink
Labs
Lab Results
WBC 13.8 10^3/uL (4.8-10.8) H 05/02/23 22:42
RBC 5.85 10^6/uL (4.70-6.10) 05/02/23 22:42
Hgb 18.5 g/dL (13.0-18.0) H 05/02/23 22:42
Hct 51.7 % (39.0-52.0) 05/02/23 22:42
MCV 88.4 fL (80.0-94.0) 05/02/23 22:42
MCH 31.6 pg (27.0-31.0) H 05/02/23 22:42
MCHC 35.8 g/dL (33.0-37.0) 05/02/23 22:42
RDW 13.6 % (11.5-14.5) 05/02/23 22:42
Plt Count 167 10^3/uL (130-400) 05/02/23 22:42
MPV 10.2 fL (7.4-10.4) 05/02/23 22:42
Abs Immat Gran (auto) 0.1 10^3/uL (0-0.05) H 05/02/23 22:42
Absolute Neuts (auto) 12.3 10^3/uL (1.4-6.5) H 05/02/23 22:42
Absolute Lymphs (auto) 0.6 10^3/uL (1.2-3.4) L 05/02/23 22:42
Absolute Monos (auto) 0.7 10^3/uL (0.1-0.6) H 05/02/23 22:42
Absolute Eos (auto) 0.0 10^3/uL (0-0.7) 05/02/23 22:42
Absolute Basos (auto) 0.0 10^3/uL (0-0.2) 05/02/23 22:
Immature Gran % 0.7 % (0-0.5) H 05/02/23 22:42
Neutrophils % 89.8 % (42.2-75.2) H 05/02/23 22:42
Lymphocytes % 4.4 % (20.5-51.1) L 05/02/23 22:42
Monocytes % 4.9 % (1.7-9.3) 05/02/23 22:
Eosinophils % 0.0 % (0-6) 05/02/23:
Basophils % 0.2 % (0-2) 05/02/23 22:42
Creatinine 2.0 mg/dL (0.7-1.3) H 05/02/23 23:18
Vital Signs
Vital Signs
Temp Pulse Resp BP Pulse Ox
97.7 F 88 16 100/65 90
05/03/23 11:35 05/03/23 12:45 05/03/23 11:35 05/03/23 11:35 05/03/23 11:35
[2023-05-03 16:28] LABS: Blood Urea Nitrogen 48 mg/dl (9-20); Calcium 8.6 mg/dl (8.4-10.2); Carbon Dioxide 28 mmol/L (22-30); Chloride 93 mmol/L (98-107); Estimated Creatinine Clearance 70 ml/min; Glucose 124 mg/dl (70-99); Potassium 3.8 mmol/L (3.5-5.1); Sodium 131 mmol/L (135-145); eGFR > 60.00
[2023-05-03 17:50] LABS: Glucose - Point of Care 92 mg/dl (70-99)
--- NOTE | 2023-05-03 18:14 | PTCARENOTE ---
pt continues to be SR on the monitor, HR in the 70s, VSS. pt offers no complaints at this time. pt placed on droplet precautions due to being flu positive. pt continues to be on O2, 92% on 3L. pt educated on plan of care for the evening and pt
verbalized understanding.
--- NOTE | 2023-05-03 21:18 | PTCARENOTE ---
Addendum entered by Maxwell De La Vega RN 05/03/23 23:19:
Patient siting up watching TV on his own computer. SR BB and did have a short burst of nonsustained A-fib. Was not coughing and denies chest pain or shortness of breath during episode. Decreased breath sounds throughout, poor inspiratory effort with
some course breath sounds at his bases, 3 liters NC 92%. Using urinal at bedside dark yellow urine. Call lopez in reach
Original Note:
Patient siting up watching TV on his own computer. SR BB and did have a short burst of nonsustained A-fib. Was not coughing and denies chest pain or shortness of breath during episode. Decreased breath sounds throughout, poor inspiratory effort with
some course popping like sounds at his bases, 3 liters NC 92%. Using urinal at bedside dark yellow urine. Call lopez in reach
[2023-05-03 21:46] LABS: Glucose - Point of Care 95 mg/dl (70-99)
[2023-05-04 04:45] VITALS: BP 101/67
[2023-05-04 04:59] VITALS: BMI 29.9
--- NOTE | 2023-05-04 05:15 | PTCARENOTE ---
Patient sitting up in chair using lap top. POX 89% on 3 liters, increased to 4 liters 90%. Intermittently coughing but in no distress. Respirations regular, breath sounds decreased, poor inspiratory effort. Patients son is home ill with the flu,
stating he needs to be discharged today to take his son to [facility] today, his son is not doing well; will forward his concerns
[2023-05-04 05:23] LABS: Hematocrit 48.4 % (39.0-52.0); Hemoglobin 17.3 g/dL (13.0-18.0); Mean Corp Hgb Conc. 35.7 g/dL (33.0-37.0); Mean Corpuscular Hgb 31.7 pg (27.0-31.0); Mean Corpuscular Volume 88.8 fL (80.0-94.0); Mean Platelet Volume 10.4 fL (7.4-10.4); Platelet Count 162 10^3/uL (130-400); Red Blood Cell Count 5.45 10^6/uL (4.70-6.10); Red Cell Dist. Width 13.7 % (11.5-14.5); White Blood Cell Count 9.8 10^3/uL (4.8-10.8)
[2023-05-04 06:04] LABS: Blood Urea Nitrogen 35 mg/dl (9-20); Calcium 8.6 mg/dl (8.4-10.2); Carbon Dioxide 27 mmol/L (22-30); Chloride 97 mmol/L (98-107); Estimated Creatinine Clearance 104 ml/min; Glucose 77 mg/dl (70-99); HDL Cholesterol 21 mg/dl; LDL Cholesterol, Calculated 24 mg/dl; Potassium 3.9 mmol/L (3.5-5.1); Sodium 132 mmol/L (135-145); Total Cholesterol 72 mg/dl (50-199); Triglyceride 135 mg/dl (10-149); Very Low Density Lipoprotein 27 mg/dl (0-30); eGFR > 60.00
[2023-05-04 07:49] VITALS: BP 98/67
[2023-05-04 07:53] LABS: Glucose - Point of Care 71 mg/dl (70-99)
[2023-05-04] MEDS: SYMBICORT 160/4.5 MCG INHALER 2 PUFF INH (08:20)
[2023-05-04] MEDS: TAMIFLU 30 MG PO (08:27)
[2023-05-04] MEDS: LOW STRENGTH ASPIRIN 81 MG PO (08:28)
[2023-05-04] MEDS: LIPITOR 40 MG PO (08:28)
[2023-05-04] MEDS: ELIQUIS 5 MG PO (08:32)
[2023-05-04 08:33] LABS: Glycohemoglobin (HgbA1c) 8.4 % (4.0-5.6)
--- NOTE | 2023-05-04 08:43 | W.PN.HOSP.TC ---
Today's Communication/Plan
-
d/c AMA
Assessment / Plan
Assessment / Plan
pt is a 58 yo male
Acute hypoxic respiratory failure--in part due to influenza A positivity--also possible contribution of acute on chronic diastolic congestive heart failure--off 4 L of oxygen he is in the low to mid 80s (83 to 85%)
paroxysmal afib --S/ p successfully cardioverted in ER but developed hypotension after required pressor support which is off--Held Lisinopril and carvedilol due to hypotension
-ER initiated Eliquis--ECHO pending--apprec cards
Elevated Abnormal troponin, suspect nonischemic myocardial injury secondary to atrial fibrillation with rapid ventricular response per cards--HX Inferior STEMI� s/p PCI mid RCA and POBA distal RCA--FHX CAD--Trend TPNI (peaked at 0.058 and
deceasing)--cont. ASA and Atorvastatin--held� Carvedilol due to hypotension
B/L [place] edema with significant BNP--Suspect acute HF / HFpEF ?--daily Wt and I/Os--await Card eval in AM for further Diuresis
ALEX suspect due to cardiorenal syndrome (resolved)--help lisinopril--apprec renal
Chronic Hyponatremia suspect hypervolemic--s/p 3% NaCl--appears at baseline?
Bicytosis - Leucocytosis and Erythrocytosis� DDX: Hemoconcentration vs Reactive vs� Primary Polycythemia/ myeloproliferative--apprec heme
DMT2--held Metformin-- add ISS low
Ongoing Tobacco abuse
DVT Px: on Eliquis
Code: Full
Patient is on 4 L of oxygen currently and saturating at 92%, off oxygen he is 83 to 85% on room air at rest. Blood pressure 98/67 systolic which runs a bit low for him. Although he denies any significant lightheadedness or dizziness. Patient
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 He states that his pulse ox is even lower than the patient's and he also is influenza positive. His father feels that patient's
son gave the flu to him.
I have explained that this is likely not safe for discharge. Therefore, the patient will leave AGAINST MEDICAL ADVICE. He did sign the paperwork and understands. He states that someone will be coming to pick him up and he will not be driving. I
did offer him oxygen which he is willing to take IF WE CAN GET IT BEFORE 11 AM.
Anticipated Discharge: Today
Subjective/Interval History
-
Date of Service: May 04, 2023
pt syas his BP a bit lower than baseline for him
also needs to leave by 11 to get his Autistic son with the flu to [facility]
Objective Data
-
Labs:
Laboratory Results
05/04/23
04:52
WBC 9.8
Hgb 17.3
Hct 48.4
Plt Count 162
Sodium 132 L
Potassium 3.9
Chloride 97 L
Carbon Dioxide 27
BUN 35 H
Creatinine 0.8
Glucose 77
Calcium 8.6
Vital Signs:
max temp for 24 hours
05/03/23
15:44
Temp 98 F
Vital Signs
Temp Pulse Resp BP Pulse Ox
97.7 F 79 16 98/67 92
05/04/23 08:07 05/04/23 08:26 05/04/23 08:26 05/04/23 07:49 05/04/23 08:26
I&O
05/03/23 05/04/23 05/05/23
06:59 06:59 06:59
Intake Total 495 / 495 960 / 960
Output Total 300 / 300 950 / 950
Balance 195 / 195
Review of Systems
-
All other systems: Reviewed and negative
Physical Exam
-
General: Well Developed, Well Nourished and No Apparent Distress
HEENT: Normocephalic, Atraumatic and Oxygen
Respiratory: Wheezes
Cardiac: Regular Rhythm and S1/S2; Negative Murmur
GI: Soft, Nontender, Nondistended and Normal Bowel Sounds
Musculoskeletal: No Clubbing, No Cyanosis and No Edema
Skin: Warm
Neuro: Awake and Alert
--- NOTE | 2023-05-04 08:57 | W.PN.CARDCBS ---
Today's Communication / Plan
-
Eliquis
Coreg for rate control
I have no objection for discharge
He will need to hold his lisinopril and metformin for 5 to 7 days and resume
Outpatient echocardiogram is arranged in 3 weeks with our office
Outpatient visit with Dr. Novoa after his echo
Impression / Plan
-
PCP: Jarret Naylor
Commercial Loan Processor: Dr. Jasiel Novoa
Impression:
Presented 05/03/2022 with tachycardia, lightheaded and weakness
Atrial fibrillation with accelerated ventricular response
s/p CV 05/03/2023
Hypotension
Abnormal troponin
Hyponatremia
ALEX
CAD
Status post mid RCA JESS and PTCA of ostial RPL October 2018
Paroxysmal atrial fibrillation
Hypertension
Hyperlipidemia
Type 2 diabetes
Tobacco abuse
Cardiac catheterization November 13, 2018: LAD with 30% mid stenosis, second OM with 60% mid stenosis, a small artery and a 100% thrombotic total occlusion of the RCA. There was a large area of inferior hypokinesis with mild left ventricular
dysfunction, EF 42%.��The patient underwent successful 4.0/28 mm drug-eluting stent to the mid RCA and PTCA of the ostial RPL branch.
Echo 05/10/2021: EF 50 to 55%, stage II DD, mild pulmonary hypertension with PAP 41 mmHg, no significant valvular disease
Plan:
Patient is a 58-year-old male with past medical history significant for coronary artery disease with prior RCA stent, hypertension, hyperlipidemia, type 2 diabetes, ongoing tobacco abuse and history of paroxysmal atrial fibrillation who presented to
emergency department 05/03/2023 with tachycardia, increasing shortness of breath, weakness and dizziness. He admits that he has been dealing with upper respiratory symptoms including cough. 3 days prior he was seen at outpatient cardiology and was
in sinus rhythm. Patient was noted to be in atrial fibrillation with rapid ventricular response and was hypotensive. Patient was provided 3% saline fluid bolus without improvement of blood pressure. He underwent a cardioversion with adventist
of sinus rhythm. His blood pressure unfortunately made hypotensive and he was initiated on Levophed 4 mcg/min which was weaned to 2 mcg/min at time of this evaluation. He was noted to have a creatinine of 2.0, sodium 124, calcium 7.6. Troponin
0.058. proBNP 7360. Patient continues to have intermittent dizziness and shortness of breath with activity. He denies chest pain, edema, orthopnea or PND. He does feel slightly bloated.
-Presented 05/03/2022 with tachycardia, lightheaded and weakness. He was found to be in atrial fibrillation with rapid ventricular response and hypotensive.
-Paroxysmal atrial fibrillation with rapid ventricular response. Patient underwent cardioversion in emergency department with successful conversion to sinus rhythm. Telemetry is improved. He is having sinus rhythm. I suspect his age arrhythmias
are exacerbated by his influenza but given his prior atrial fibrillation I suspect he will have ongoing issues in the future. I did discuss long-term care of atrial fibrillation and broad strokes with patient and sister on 03 May.
-Continue Eliquis 5 mg twice a day
-Rate control with beta-jesus when blood pressure allows
-Would consider evaluation for outpatient ablation
-TSH 2.72
-Renal function, sodium, blood pressures are improving and from a cardiovascular perspective I have no objection to discharge
-Outpatient echo was arranged in 3 weeks
-Would hold lisinopril and metformin given ALEX and can be resumed in 5 to 7 days as outpatient.
-Hyponatremia with sodium of 124 is now improving. Upon review of previous blood work patient does appear to have chronically low sodium levels. Consider nephrology evaluation given creatinine and hyponatremia
-Abnormal troponin, suspect nonischemic myocardial injury secondary to atrial fibrillation with rapid ventricular response. Peaked 0.058
-Would consider eventual outpatient stress test
-Elevated proBNP of 7360. Patient weight is less than weight at office visit earlier this week. He does not appear to be acutely volume overloaded.
-Currently on 2 L of oxygen via nasal cannula, wean as tolerated
Patient's sister who is a cardiac nurse was updated over the phone by Dr. Vega
Progress Note - Commercial Loan Processor
Subjective
Date of Service: May 04, 2023
Total Time Spent with Patient (in minutes): Feels better
Objective
Labs:
05/04/23 04:52
05/04/23 04:52
Labs
Hgb 17.3 g/dL (13.0-18.0) 05/04/23 04:52
Hct 48.4 % (39.0-52.0) 05/04/23 04:52
Plt Count 162 10^3/uL (130-400) 05/04/23 04:52
Sodium 132 mmol/L (135-145) L 05/04/23 04:52
Potassium 3.9 mmol/L (3.5-5.1) 05/04/23 04:52
BUN 35 mg/dl (9-20) H 05/04/23 04:52
Creatinine 0.8 mg/dL (0.7-1.3) 05/04/23 04:52
Glucose 77 mg/dl (70-99) 05/04/23 04:52
Troponins
05/02/23 05/03/23 05/03/23
22:42 06:42 14:18
Troponin I 0.058 H* 0.044 H* Cancelled
05/03/23
22:18
Troponin I Cancelled
Vital Signs and I&O:
Vital Signs
Temp Pulse Resp BP Pulse Ox
97.7 F 79 16 98 92
05/04/23 08:07 05/04/23 08:26 05/04/23 08:26 05/04/23 07:49 05/04/23 08:26
Vital Signs
Temp Pulse Resp BP Pulse Ox
97.7 F 79 16 9867 92
05/04/23 08:07 05/04/23 08:26 05/04/23 08:26 05/04/23 07:49 05/04/23 08:26
Intake & Output
05/02/23 05/03/23 05/04/23 05/05/23
06:59 06:59 06:59 06:59
Intake Total 495 / 495 960 / 960
Output Total 300 / 300 950 / 950
Balance 195 / 195
Physical Exam
Physical Exam
HEENT normocephalic atraumatic
JVP 6
Cor regular no murmur
Lungs clear to auscultation bilaterally
Abdomen soft nontender positive bowel sound
No extremity edema
Alert and x 3
Nonfocal neurologically
--- NOTE | 2023-05-04 09:10 | CM ---
called by Dr Vazquez, pt wanting to go home AMA to deal with his austic son who is sick. pt has O2 sat r/a=83% he is agreeable to home o2, however said he could only wait till 11am d/t his son's Dr sánchez. he is agreeable to having the O2 delivered
to his home today. [facility] home o2 all set up, all info faxed, they did not have a transporter driver avail to deliver o2 to the hospital but could get to his home later . Dr Vazquez aware and tried to convince the pt to stay. pt left AMA.
--- NOTE | 2023-05-04 09:29 | PTCARENOTE ---
Assumed care of pt from night RN. Pt received awake and alert, sitting up in chair. CM shows NSR with BBB, POX is 93% on 4litersn/c. 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 Son has
the flu as well and his POX is lower than pt's. Pt most likely got the flu from his son. He is adamant that he must leave by 11:00 and bring son to [facility]. Cleared to go by cardiology. Dr. Chan is working with Case Management to arrange for
oxygen prior to is 11:00 am D/C. Pt signing out AMA per Dr. Chan.
[2023-05-04] MEDS: ProAIR HFA INHALER 2 PUFF INH (10:19)
--- NOTE | 2023-05-04 12:00 | PTCARENOTE ---
Case management able to arrange for oxygen delivery this afternoon. Pt signed out AMA, risks explained.
--- NOTE | 2023-05-04 12:07 | PTCARENOTE ---
Pt left AMA with friend, riskd reviewed.
--- NOTE | 2023-05-04 13:05 | W.DCSUMMARY ---
Discharge Summary
Discharge Data
Date of Admission: 05/03/23
Date of Discharge: 05/04/23
-
Pending Results: No
Hospital Course
Primary care physician : Juvencio Betancourt
Principal Discharge diagnosis : Acute hypoxemic respiratory failure due to influenza A and acute on chronic diastolic congestive heart failure, paroxysmal atrial fibrillation with rapid ventricular response
Chronic Discharge diagnosis : Elevated abnormal troponin suspect nonischemic myocardial injury per cardiology, bilateral lower extremity edema, acute kidney injury�resolved, chronic hyponatremia, leukocytosis/erythrocytosis, type 2 diabetes mellitus
Hospital Course : Patient is a 58-year-old male who presented with shortness of breath and tachycardia. He was feeling lightheaded and weak. Patient's son is autistic and he cares for him at home. He stated that his son has an upper respiratory
infection as well. Patient did see his retail receiving clerk 2 days prior and was told 'everything was fine'. Patient was found to be in rapid atrial fibrillation and was cardioverted in the emergency department and then was found to be hypotensive
requiring pressors. Patient was admitted.
Problem #1: Acute hypoxemic respiratory failure due to influenza A and acute on chronic diastolic congestive heart failure. Patient tested positive for influenza A and was requiring 4 L of oxygen. He did receive Tamiflu but when oxygen was removed
patient's pulse ox was 83 to 85% on room air at rest. Patient is leaving the hospital AGAINST MEDICAL ADVICE. Oxygen has been set up and will be delivered to the patient's house this afternoon.
Problem #2: Paroxysmal atrial fibrillation with rapid ventricular response. Patient was seen in consultation by cardiology and after cardioversion in the emergency department developed hypotension. He required pressor support which has since been
weaned off. Per cardiology, lisinopril and carvedilol will be held for another 5 to 7 days. Eliquis was started and the patient will continue on that. Echocardiogram was not done this admission and will likely need to be done as an outpatient.
Problem #3: All other medical issues. These include Elevated abnormal troponin suspect nonischemic myocardial injury per cardiology, bilateral lower extremity edema, acute kidney injury�resolved, chronic hyponatremia, leukocytosis/erythrocytosis,
type 2 diabetes mellitus. These medical issues were stable during his hospitalization. Medications were continued as able.
Patient left the hospital AGAINST MEDICAL ADVICE because he has to take his son who also has influenza A to [facility] for decreasing pulse ox is at home. Patient's son also was influenza positive and the patient felt that he gave it to him. I did
explain to the patient the concern about confusion, syncope, and driving a motor vehicle and the concern for of himself or others if he is driving without oxygen. He understands and states that someone is coming to pick him up. Case
management has arranged for oxygen to be delivered to his home this afternoon.
Time for discharge is 40 minutes.
Discharge Plan
-
Patient Disposition: Against Medical Advice
Discharge Diagnosis/Procedures: Acute hypoxemic respiratory failure due to influenza A and acute on chronic diastolic congestive heart failure, paroxysmal atrial fibrillation, elevated abnormal troponin, bilateral lower extremity edema, acute kidney
injury, chronic hyponatremia, leukocytosis and erythrocytosis, type 2 diabetes mellitus, ongoing tobacco use
Condition: Fair
Diet: Low Cholesterol, Low Sodium and Restrict fluids to 64 oz
Activity: As tolerated
Driving Restrictions: No driving while pulse ox is below 92%
Bathing Restrictions: None
Specialty Instructions: Weigh Daily- Call MD for wt gain/loss 3 lbs overnight/5 lbs in 1 week
Referrals:
Jasiel Novoa DO [Active] - (Outpatient echocardiogram arranged in 3 weeks through cardiology office afterwards outpatient visit with Dr. Novoa recommended)
Juvencio Betancourt MD [Family Provider] - in less than 1 week
Prescriptions:
New
oseltamivir 30 mg Capsule
30 mg PO BID Qty: 10 0RF
Eliquis 5 mg Tablet
5 mg PO BID Qty: 60 0RF
Continued
prednisone 10 mg Tablets,Dose Pack
40 mg PO DIRECTED
Rx Instructions:
start 05/01/23 take 40mg daily for 3 days then take 30mg daily for 3 days then 20mg daily for 3 days then 10md daily u ntil finished
albuterol sulfate [ProAir HFA] 90 mcg/actuation Hfa Aerosol Inhaler
2 puff INHALATION R Q6HPRN PRN (Reason: sob)
atorvastatin [Lipitor] 40 mg Tablet
40 mg PO DAILY Qty: 0 0RF
aspirin 81 MG tablet,chewable
81 mg PO DAILY Qty: 30 6RF
cholecalciferol (vitamin D3) 1,250 mcg (50,000 unit) capsule
1,250 mcg PO LINDER Qty: 0 0RF
budesonide-formoterol [Symbicort] 160-4.5 mcg/actuation Hfa Aerosol Inhaler
2 inh INHALATION R BID Qty: 0 0RF
Held
lisinopril 2.5 MG tablet
2.5 mg PO DAILY Qty: 30 6RF
Hold Instructions: Hold for minimum of 5 to 7 days per cardiology
carvedilol 6.25 MG tablet
6.25 mg PO BID Qty: 60 6RF
Hold Instructions: Hold for a minimum of 5 to 7 days per cardiology
metformin 500 mg Tablet Extended Release 24 Hr
500 mg PO BID
Hold Instructions: Hold for 5 to 7 days per cardiology
Discontinued
naproxen sodium [Aleve] 220 mg Tablet
220 mg PO [id number] PRN (Reason: mild pain)
levofloxacin [Levaquin] 750 mg Tablet
750 mg PO DAILY
Patient Comments:
PATIENT TECHNICAL SALES REPRESENTATIVE ON #7 ON 05/01/23
Discharge Orders:
Discharge Patient (As Directed); Ordered 05/04/23
Ordered By: Lacy Chan
Discharge Date and Time
Discharge Date/Time: 05/04/23 12:08
[2023-05-06 12:33] LABS: Erythropoietin (EPO) 10 mU/mL (4-27)
[2023-05-09 16:00] LABS: BCR-ABL1 Source Whole Blood; BCR-ABL1, Diagnostic Qual Not Detected
--- NOTE | 2023-05-12 11:20 | HFEDUCATE ---
Pt had 72 hr phone call on 05/05/23 at 8:18AM from Izzy Brown to discuss discharge and schedule F/U testing and appointments. Pt has a F/U appt on 06/05/23 at 4:00PM with Lesvia WILL.
--- NOTE | 2023-05-12 11:28 | HFEDUCATE ---
Pt had 72 hr F/U phone call on 05/08/23 at 4:38PM with Roopa Hallman to discuss discharge F/U appointments and symptoms.
[2023-05-12 13:59] LABS: JAK2 Qual Mutation by PCR Not Detected; JAK2-PCR Source Whole Blood
== END 2023-05-04 12:08 | disposition home health service (06) | DRG 291 ==
LOC: IVU 03:57
PROVIDERS: Emergency Medicine; Internal Medicine; ADMITTING PHYSICIAN Internal Medicine; ATTENDING PHYSICIAN Internal Medicine; CONSULT PHYSICIAN Internal Medicine Hematology & Oncology; CONSULT PHYSICIAN Specialist; EMERGENCY PHYSICIAN Emergency Medicine; FAMILY PHYSICIAN Family Medicine; OTHER PHYSICIAN Internal Medicine Cardiovascular Disease
PROC: 5A2204Z Restoration of Cardiac Rhythm, Single (ICD-10-PCS; 2023-05-03)
DX: I11.0 Hypertensive heart disease with heart failure (principal); I50.33 Acute on chronic diastolic (congestive) heart failure; J96.01 Acute respiratory failure with hypoxia; E87.1 Hypo-osmolality and hyponatremia; N17.9 Acute kidney failure, unspecified; J10.1 Influenza due to other identified influenza virus with other respiratory manifestations; I5A Non-ischemic myocardial injury (non-traumatic); I48.0 Paroxysmal atrial fibrillation; Z79.01 Long term (current) use of anticoagulants; I95.9 Hypotension, unspecified; E11.9 Type 2 diabetes mellitus without complications; I25.10 Atherosclerotic heart disease of native coronary artery without angina pectoris; E78.5 Hyperlipidemia, unspecified; F17.200 Nicotine dependence, unspecified, uncomplicated; Z79.82 Long term (current) use of aspirin; D75.1 Secondary polycythemia; Z11.52 Encounter for screening for COVID-19
CPT/HCPCS: 71046; 80048; 80053; 80061; 81206; 81207; 81208; 81270; 82668; 82962; 83036; 83880; 83930; 83935; 84145; 84300; 84443; 84484; 85025; 85027; 87502; 87807; 87811; 92960; 93005; 94640; 96365; 96366; 96375; 99152; 99291; 99406

== ENCOUNTER → 2023-05-22 08:27 | Outpatient (REF) | payer OTHER, SELFPAY | LOC: RCS 08:27 | PROVIDERS: ATTENDING PHYSICIAN Nuclear Medicine Nuclear Cardiology; FAMILY PHYSICIAN Nurse Practitioner Family | DX: R94.31 Abnormal electrocardiogram [ECG] [EKG] (principal); I48.0 Paroxysmal atrial fibrillation; I25.5 Ischemic cardiomyopathy; Z95.5 Presence of coronary angioplasty implant and graft | CPT/HCPCS: 93306 ==

== ENCOUNTER 2024-05-31 23:48 | Emergency (ER) | payer SELFPAY ==
[2024-05-31 23:51] VITALS: BP 152/102
--- NOTE | 2024-06-01 01:48 | ED.GENMED ---
History of Present Illness
General
Chief Complaint: Cold/Flu/URI Symptoms
Source: patient
Time Seen by Provider: 06/01/24 01:38
History of Present Illness
History of Present Illness:
59-year-old male with past medical history of atrial fibrillation, CHF, CAD status post previous [place], [id number] diabetes presenting to the emergency department with URI-like symptoms for the last 4 to 5 days, 17-year-old son at home sick
with similar symptoms, today had a coughing spell and felt a pop into his left shoulder and now with pain with range of motion of the left arm and his neck. Patient states he had a similar episode a few years ago which improved with prednisone and
also helped the respiratory symptoms. Denies any fevers, chills, rigors. Patient smokes at least 1 pack/day but has no known history of asthma/COPD. No recent travel or recent antibiotics. No lower extremity edema. No other concerns.
Past History
Past History
ED Past Medical History: Arrthythmia (Atrial fibrillation), CAD, NIDDM and FL
ED Past Surgical History: Appendectomy
Social History
Tobacco: Smoker
Alcohol: None
Drug: None
Personal:
Living: with family
Review of Systems
Review of Systems
All Other Systems: ROS reviewed and negative except as documented in HPI and ROS
Phy Exam
Physical Exam
Physical Exam:
GENERAL: Alert , in no apparent distress
HEAD: NCAT
EYE: conjunctiva clear
NECK: Supple
ENT: o/p clr, mmm.
CARDIAC: Regular rate and rhythm
LUNGS: slightly diminished right mid lung, no acute respiratory distress, no wheezes/rales/rhonchi
NEUROLOGICAL: Alert and oriented
SKIN: Warm and dry, skin intact.
MUSCULOSKELETAL: well perfused. pain with ROM but patient does allow for FROM. NVI
PSYCH: Normal and appropriate interaction.
Scores
Heart Failure Risk
Heart Failure Risk Score: Not Applicable
Heart Score for Chest Pain Patients
STEMI patient?: Not applicable
Withdrawal Assessment of Alcohol
Withdrawal Assessment Completed?: Not applicable
Course
Orders/Labs/Results
Orders:
Orders
06/01/24 00:00
CR Chest - 2 Views Urgent
Reason For Exam: SOB
CR Shoulder, Trauma - Left Urgent
Reason For Exam: FELT A POP WHILE COUGHING
06/01/24 02:00
Prednisone [Deltasone] 50 mg .ROUTE .STK-MED ONE
06/01/24 02:01
Prednisone [Deltasone] 50 mg PO NOW STA
Vital Signs
Initial and Last Documented VS:
Initial Vital Signs
Temp Pulse Resp BP Pulse Ox
98.2 F 96 26 152/102 94
05/31/24 23:51 05/31/24 23:51 05/31/24 23:51 05/31/24 23:51 05/31/24 23:51
Last Documented Vital Signs
Temp Pulse Resp BP Pulse Ox
98.2 F 96 26 152/102 94
05/31/24 23:51 05/31/24 23:51 05/31/24 23:51 05/31/24 23:51 05/31/24 23:51
MDM/Problems Addressed
Differential Diagnosis Includes:
COVID, flu, pneumonia, muscle strain, rotator cuff injury, bursitis
MDM/Problems Addressed:
59-year-old male presenting to the ER for evaluation of cough that has been ongoing for 4 to 5 days, son at home sick with similar symptoms. Patient also notes today had a coughing spell that caused him pain to his left shoulder and decreased range
of motion initially but states range of motion seems to be improved presently. X-rays ordered on arrival. X-ray of the chest does show a right midlung pneumonia. X-ray of the shoulder does not show any acute abnormalities. Will treat with
doxycycline given patient's penicillin allergy. Will also treat with prednisone as patient states this has helped his shoulder before and will also get secondary benefit of respiratory issues and patient who is known extensive smoking history
*Radiology
Radiology exam reviewed: preliminary read by ED provider (Right midlung pneumonia)
*Pulse Oximetry
Patient hypoxic: no
*Critical Care Note
Total Time (30-74mins, 75-104mins- exclusive of procedures): Not Applicable
ED Attending Note
-
Portions of this chart may have been created with voice recognition software.� Occasional wrong word or��sound alike� substitutions may have occurred due to the inherent limitations of voice recognition software.
Discharge Plan
Departure
Patient Disposition: Home (Routine Discharge)
Date of Disposition: 06/01/24
Time of Disposition: 01:48
Patient with high blood pressure during this ER visit?: Yes
Discharge Problem:
Pneumonia, Left shoulder pain
Instructions: Pneumonia
Prescriptions:
New
doxycycline hyclate 100 mg tablet
100 mg PO BID 10 Days Qty: 20 0RF
prednisone 10 mg Tablet
See Rx Instructions .ROUTE .COMPLEX Qty: 30 0RF
Rx Instructions:
Take By Mouth:
40 mg daily x3 days, 30 mg daily x3 days,
20 mg daily x3 days, 10 mg daily x3 days.
No Action
lisinopril 2.5 MG tablet
2.5 mg PO DAILY Qty: 30 6RF
carvedilol 6.25 MG tablet
6.25 mg PO BID Qty: 60 6RF
prednisone 10 mg Tablets,Dose Pack
40 mg PO DIRECTED
Rx Instructions:
start 05/01/23 take 40mg daily for 3 days then take 30mg daily for 3 days then 20mg daily for 3 days then 10md daily u ntil finished
albuterol sulfate [ProAir HFA] 90 mcg/actuation Hfa Aerosol Inhaler
2 puff INHALATION R Q6HPRN PRN (Reason: sob)
metformin 500 mg Tablet Extended Release 24 Hr
500 mg PO BID
oseltamivir 30 mg Capsule
30 mg PO BID Qty: 10 0RF
Eliquis 5 mg Tablet
5 mg PO BID Qty: 60 0RF
atorvastatin [Lipitor] 40 mg Tablet
40 mg PO DAILY Qty: 0 0RF
aspirin 81 MG tablet,chewable
81 mg PO DAILY Qty: 30 6RF
cholecalciferol (vitamin D3) 1,250 mcg (50,000 unit) capsule
1,250 mcg PO LINDER Qty: 0 0RF
budesonide-formoterol [Symbicort] 160-4.5 mcg/actuation Hfa Aerosol Inhaler
2 inh INHALATION R BID Qty: 0 0RF
Referrals:
Bhumika Arevalo CRNP [Family Provider] -
Interventions
Interventions:
*Risk Screen - Suicide Last Done: 05/31/24 23:51
*Neglect/Abuse Screening Last Done: 05/31/24 23:51
Discharge Date and Time
Print Language: NAMIBIAN
[2024-06-01] MEDS: DELTASONE 50 MG PO (02:01)
== END 2024-06-01 03:26 | disposition home or self-care (01) ==
LOC: EMR 23:48
PROVIDERS: EMERGENCY PHYSICIAN Emergency Medicine; FAMILY PHYSICIAN Nurse Practitioner Family
DX: J18.9 Pneumonia, unspecified organism (principal); M25.512 Pain in left shoulder; I48.91 Unspecified atrial fibrillation; I25.10 Atherosclerotic heart disease of native coronary artery without angina pectoris; I25.2 Old myocardial infarction; I50.9 Heart failure, unspecified; E11.9 Type 2 diabetes mellitus without complications; F17.210 Nicotine dependence, cigarettes, uncomplicated; Z88.0 Allergy status to penicillin
CPT/HCPCS: 99284; 71046; 73030

== ENCOUNTER → 2024-08-04 09:59 | Outpatient (REF) | payer OTHER, SELFPAY | LOC: RAD 09:59 | PROVIDERS: ATTENDING PHYSICIAN Nurse Practitioner Family | DX: Z87.01 Personal history of pneumonia (recurrent) (principal); J18.0 Bronchopneumonia, unspecified organism | CPT/HCPCS: 71046 ==

== ENCOUNTER → 2024-08-19 09:05 | Outpatient (REF) | payer OTHER, SELFPAY | LOC: RAD 09:05 | PROVIDERS: ATTENDING PHYSICIAN Nurse Practitioner Family | DX: Z87.01 Personal history of pneumonia (recurrent) (principal); F17.200 Nicotine dependence, unspecified, uncomplicated; R06.02 Shortness of breath | CPT/HCPCS: 71270; Q9967 ==

== ENCOUNTER → 2024-10-28 10:12 | Outpatient (REF) | payer OTHER, SELFPAY | LOC: RCS 10:12 | PROVIDERS: ATTENDING PHYSICIAN Nuclear Medicine Nuclear Cardiology; FAMILY PHYSICIAN Family Medicine | DX: I48.0 Paroxysmal atrial fibrillation (principal); I25.10 Atherosclerotic heart disease of native coronary artery without angina pectoris; Z95.5 Presence of coronary angioplasty implant and graft; I25.2 Old myocardial infarction | CPT/HCPCS: 93306 ==